=== PATIENT | male | born 1990 | race Two or more races ===

== ENCOUNTER 2024-07-01 21:27 | Emergency (ER) | payer MEDICAID, SELFPAY ==
[2024-07-01 21:28] VITALS: BMI 34.4
--- NOTE | 2024-07-01 21:30 | EKG_ITS ---
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
--- NOTE | 2024-07-01 21:32 | XR_ITS ---
Examination: PA lateral chest 2 views Technique: Upright PA lateral chest 2 views Exam date and time: July 01, 2024 1001 hrs. Indications: Chest pain today Findings: Normal heart size Lungs are clear. The osseous structures are intact Impression: No active disease
--- NOTE | 2024-07-01 21:33 | PD.EDRME ---
Rapid Medical Screening Exam RME Arrival date/time: 07/01/24 21:27 33 year old male present to ED for c/o of chest pain. I have greeted and performed a focused initial assessment of this patient. A comprehensive ED assessment and evaluation of the patient, analysis of all test results, and completion of the medical decision making process will be conducted by additional ED providers. Chief Complaint: Anxiety Time Seen by Provider: 07/01/24 21:32
[2024-07-01 21:39] VITALS: BP 152/84; PULSE 100; RESP 20; TEMP 36.7; O2SAT 100
[2024-07-01 22:00] LABS: Basophils # (Auto) 0.1 Thou/mm3 (0.0-0.2); Basophils % (Auto) 1 % (0-2.5); Eosinophils # (Auto) 0.1 Thou/mm3 (0.0-0.5); Eosinophils % (Auto) 1 % (0-10); Hematocrit 40.3 % (41.0-53.0); Hemoglobin 13.8 g/dL (13.5-16.0); Immature Granulocytes % (Auto) 0 % (0-0); Immature Granulocytes Auto 0.02 Thou/mm3 (0.00-0.00); Lymphocytes # (Auto) 2.3 Thou/mm3 (1.0-4.8); Lymphocytes % (Auto) 26 % (10-50); Mean Corpuscular HGB Conc 34.2 g/dl (31.0-37.0); Mean Corpuscular Hemoglobin 29.6 pg (25.0-35.0); Mean Corpuscular Volume 87 fL (80-100); Monocytes # (Auto) 0.4 Thou/mm3 (0.0-0.8); Monocytes % (Auto) 4 % (0-12); Neutrophils # (Auto) 6.2 Thou/mm3 (1.8-7.7); Neutrophils % (Auto) 69 % (37-80); Nucleated Red Blood Cell % 0 /100 WBC (0); Platelet Count 216 Thou/mm3 (140-440); RDW Standard Deviation 40.2 fL (35.1-43.9); Red Blood Count 4.66 Miln/mm3 (4.50-5.90)
[2024-07-01 22:19] LABS: Alanine Aminotransferase 26 U/L (10-49); Albumin, Serum 4.7 gm/dL (3.5-5.0); Albumin/Globulin Ratio 1.6 (1.2-2.2); Alkaline Phosphatase 120 U/L (46-116); Anion Gap 10 (7-16); Aspartate Amino Transferase 21 U/L (0-34); BUN/Creatinine Ratio 13 Ratio (12-20); Bilirubin,Total 0.7 mg/dL (0.3-1.2); Blood Urea Nitrogen 12 mg/dL (9-23); Calcium 9.7 mg/dL (8.3-10.6); Calcium (Corrected) 9.7 mg/dL (8.5-10.1); Carbon Dioxide 20.6 mMol/L (20.0-31.0); Chloride 108 mMol/L (98-107); Creatinine (Component) 0.9 mg/dL (0.6-1.3); Estimated Creatinine Clearance 142.9 mL/min (>60); Glucose 121 mg/dL (74-106); Lipase 38 U/L (12-53); Magnesium 1.8 mg/dL (1.6-2.6); Osmolality,Calculated 278 (275-295); Potassium 3.3 mMol/L (3.4-5.1); Sodium 139 mMol/L (136-145); Total Protein 7.7 gm/dL (5.7-8.2); Troponin I < 0.002 ng/mL (0.0-0.045); eGFR > 60 See Note
[2024-07-01 23:57] LABS: Amphetamine/Methamp Scrn,U Negative (Negative); Barbiturate Screen,Urine Negative (Negative); Benzodiazepines Screen,Urine Negative (Negative); Benzoylecgonine Screen, Ur Positive (Negative); Fentanyl Screen,Urine Negative (Negative); Opiate Screen,Urine Negative (Negative); THC Screen,Urine Negative (Negative)
--- NOTE | 2024-07-02 01:08 | PD.EDANX ---
ED Anxiety RME/HPI General Chief Complaint: Anxiety Stated Complaint: BILHAND NUMBNESS AFTER USING COCAIN Time Seen by Provider: 07/01/24 21:32 Arrival date/time: 07/01/24 21:27 33 year old male present to emergency room with c/o of chest pain/hand numbness after cocaine use tonight. LOCATION: chest, hands SEVERITY: Symptoms are described as being severe with limitations on activities of daily living CONTEXT: The patient is unable to identify any inciting events. DURATION/TIMING: The symptoms started approximately 1 day ASSOCIATED SYMPTOMS: The patient is unable to identify any other associated symptoms. MODIFYING FACTORS: The patient is unable to identify any alleviating or aggravating symptoms. PERTINENT ROS: no fevers, no cough, no pleuritic pain, no ripping or tearing sensations, denies any lower extremity edema and no unilateral swelling, no nausea,vomiting, diarrhea, no dizziness/headache no rash no loc/syncope episode no abd/back pain no dsyuria,urgency,frequency REVIEW OF SYSTEMS: See History of Present Illness - with the exception of those mentioned in the history of present illness, all other systems reviewed and reported as negative GENERAL: In general the patient is awake, interactive, in an emergency department gurney. HEAD/EYES/EARS/NOSE/THROAT: normo-cephalic, atraumatic, mucus membranes are moist, anicteric, palpebral conjunctiva is pink, trachea is midline. CARDIOVASCULAR: regular rate and regular rhythm, no murmurs, heart sounds are not distant, strong pulses in all four extremities that are equal and symmetric bilateral upper and lower extremities, normal capillary refill. CHEST/PULMONARY: normal chest rise and fall, good air movement, clear to auscultation bilaterally, normal inspiratory to expiratory ratios without evidence of respiratory distress. NECK: No midline/Paraspinal tenderness, no step off ROM/Strenght intact No Kernig and bruzinski sign. No trauma ABDOMEN: soft, not tender, no masses appreciated BACK: normal range of motion without pain. NEUROLOGICAL: cranio-facial features are symmetric, moves all four extremities equally without obvious limitations or weakness. EXTREMITY: no tenderness to palpation over the long bones or large joints of the bilateral upper and lower extremities, no joint swelling, no joint erythema, no signs of trauma, no unilateral leg swelling and no peripheral edema. SKIN: warm, dry, well-perfused, no jaundice, no rash, no telangiectasias or petechia. PSYCH: calm, cooperative, no evidence of psychosis or agitation RME / HPI RME / HPI narrative: 07/01/24 21:27 33 year old male present to ED for c/o of chest pain. I have greeted and performed a focused initial assessment of this patient. A comprehensive ED assessment and evaluation of the patient, analysis of all test results, and completion of the medical decision making process will be conducted by additional ED providers. Related Data Previous Rx's ?Medication ?Instructions ?Recorded ibuprofen 800 mg tablet 800 mg PO TID PRN pain #30 tabs 03/23/24 Allergies Allergy/AdvReac Type Severity Reaction Status Date / Time No Known Allergies Allergy Unknown Unverified 07/01/24 21:30 Course Quality Measures none Orders Category Date Time Status EKG (ED ONLY) *Do not use* NOW Care 07/01/24 21:31 Completed EKG (ED Only) Stat Exams 07/01/24 21:30 Draft XR chest 2V Stat Exams 07/01/24 21:32 Completed CBC Stat Lab 07/01/24 21:50 Completed CMP [Comprehensive Metabolic Panel] Stat Lab 07/01/24 21:50 Completed Drug Screen,Urine Stat Lab 07/01/24 23:10 Completed Lipase Stat Lab 07/01/24 21:50 Completed Mag [Magnesium] Stat Lab 07/01/24 21:50 Completed Troponin I Stat Lab 07/01/24 21:50 Completed Reevaluation(s) Reevaluation #1: pt is feeling better and comfortable to go home. discussed in lenght about avoid cocaine/illicit drugs which can be harmful to your health Vital Signs Vital signs: Vital Signs Temperature 98.0 F 07/01/24 21:39 Pulse Rate 100 07/01/24 21:39 Respiratory Rate 20 07/01/24 21:39 Blood Pressure 152/84 H 07/01/24 21:39 Pulse Oximetry (%) 100 07/01/24 21:39 Oxygen Delivery Method Room Air 07/01/24 21:39 Procedures -ED EKG Interpretation #1: Date of EK07/02/24 Rate: 96 Interpretation: Reviewed by me EKG Impression: Normal sinus rhythm, No acute ST-T changes and No ischemic changes Anxiety Patient data External records reviewed:: [facility] previous records Clinical information provided by:: patient Social determinants that could affect healthcare access:: substance use Patient has the following chronic illnesses:: none How is presenting disease/condition affected by chronic disease/condition?: no chronic disease Evaluation data The following diagnostics were reviewed and interpreted by me:: lab results, radiology exam(s) and EKG tracing(s) Lab and/or radiology exams considered but not ordered:: none Interpretation Summary: Findings: Normal heart size Lungs are clear. The osseous structures are intact Impression: No active disease cbc/cmp/trop/mg within normal limits drug: + cocaine Medications / Prescriptions Medications or Prescriptions considered but not ordered:: none Medication administrations:: none Consultations Consultation(s) initiated? (list below): No Diagnosis Differential diagnosis anxiety: hyperventilation, panic disorder, acute anxiety and other (mi/stemi, pna, drug abuse) Most likely diagnosis given after review of the tests above:: chest pain Admission Indicated Admission indicated?: not indicated Admission Request Was there a request for admission?: No Disposition Plan Disposition Plan: Discharge Discharge Attestation Discharge Attestation: The patient and all family members were given an opportunity to ask questions and understood the discharge instructions. Discharge instructions specifically effects, indications for sooner follow up or return to the emergency department, and the expected course of current diagnosis. Patient condition: Stable Discharge Plan Plan Patient Disposition: HOME (Self Care) Health Concerns: Follow with PMD as directed Return to ED if sx worsen Prescriptions/Referrals Prescriptions/Med Rec: No Action ibuprofen 800 mg tablet 800 mg PO TID PRN (Reason: pain) Qty: 30 0RF Referrals: Eran Aguayo MD [Primary Care Provider] - In 1 week Problem List Clinical Impression: Chest pain Patient/Caregiver Discharge Instructions Education Materials: ED Chest Pain, Uncertain Cause Print Language: Thai Stand Alone Forms: Stacy Award Info., Patient Portal Info Letter MD Attestation Attestation The patient was seen by the midlevel practitioner. I, the co-signing physician, was present during the entire ER visit. While I did not physically examine the patient, I was available for consultation as needed.
== END 2024-07-02 01:15 | disposition home or self-care (01) ==
PROVIDERS: Physician Assistant; Emergency Provider Emergency Medicine; PCP Family Medicine
DX: R07.9 Chest pain, unspecified (principal); R94.31 Abnormal electrocardiogram [ECG] [EKG]; R20.0 Anesthesia of skin; F14.90 Cocaine use, unspecified, uncomplicated
CPT/HCPCS: 36415; 71046; 80053; 80307; 83690; 83735; 84484; 85025; 93005; 99283

== ENCOUNTER 2024-08-03 20:58 | Emergency (ER) | payer MEDICAID, SELFPAY ==
[2024-08-03 20:59] VITALS: BMI 34.4
--- NOTE | 2024-08-03 21:17 | EKG_ITS ---
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
[2024-08-03 21:42] VITALS: BP 139/93; PULSE 76; RESP 18; TEMP 36.8; O2SAT 96
--- NOTE | 2024-08-03 21:52 | XR_ITS ---
Examination: PA lateral chest 2 views Technique: Upright PA lateral chest 2 views Exam date and time: August 03, 2024 10:16 PM Comparison July 01, 2024 Indications: Onset chest pain beginning 2 days ago. Findings: Normal heart size Lungs are clear. The osseous structures are intact Impression: No active disease
--- NOTE | 2024-08-03 21:53 | PD.EDRME ---
Rapid Medical Screening Exam RME Arrival date/time: 08/03/24 20:58 33-year-old male presents emergency department complaining of generalized weakness and left-sided chest pain that radiates to left arm that started earlier today. Chief Complaint: Anxiety Vital signs: Vital Signs Temperature 98.2 F 08/03/24 21:42 Pulse Rate 76 08/03/24 21:42 Respiratory Rate 18 08/03/24 21:42 Blood Pressure 139/93 H 08/03/24 21:42 Pulse Oximetry (%) 96 08/03/24 21:42 Oxygen Delivery Method Room Air 08/03/24 21:42 Vital signs reviewed by provider: Yes
[2024-08-03 23:09] LABS: Basophils # (Auto) 0.1 Thou/mm3 (0.0-0.2); Basophils % (Auto) 1 % (0-2.5); Eosinophils # (Auto) 0.1 Thou/mm3 (0.0-0.5); Eosinophils % (Auto) 1 % (0-10); Hematocrit 40.5 % (41.0-53.0); Hemoglobin 13.4 g/dL (13.5-16.0); Immature Granulocytes % (Auto) 0 % (0-0); Immature Granulocytes Auto 0.02 Thou/mm3 (0.00-0.00); Lymphocytes # (Auto) 2.4 Thou/mm3 (1.0-4.8); Lymphocytes % (Auto) 27 % (10-50); Mean Corpuscular HGB Conc 33.1 g/dl (31.0-37.0); Mean Corpuscular Hemoglobin 29.4 pg (25.0-35.0); Mean Corpuscular Volume 89 fL (80-100); Monocytes # (Auto) 0.7 Thou/mm3 (0.0-0.8); Monocytes % (Auto) 8 % (0-12); Neutrophils # (Auto) 5.5 Thou/mm3 (1.8-7.7); Neutrophils % (Auto) 62 % (37-80); Nucleated Red Blood Cell % 0 /100 WBC (0); Platelet Count 265 Thou/mm3 (140-440); Red Blood Count 4.56 Miln/mm3 (4.50-5.90); White Blood Count 8.9 Thou/mm3 (3.8-10.6)
[2024-08-03 23:17] LABS: Collection Type, Urine Clean Catch; Squamous Epithelial Cell,Urine 0 /hpf (0-5)
[2024-08-03 23:18] LABS: Partial Thromboplastin Time 26.6 Seconds (22.0-36.0); Prothrombin Time 10.5 Seconds (9.0-12.2)
[2024-08-03 23:20] LABS: B-Type Natriuretic Peptide < 20 pg/mL (0-100)
[2024-08-03 23:21] LABS: Alanine Aminotransferase 31 U/L (10-49); Albumin, Serum 4.4 gm/dL (3.5-5.0); Albumin/Globulin Ratio 1.5 (1.2-2.2); Alkaline Phosphatase 102 U/L (46-116); Anion Gap 8 (7-16); Aspartate Amino Transferase 23 U/L (0-34); BUN/Creatinine Ratio 17 Ratio (12-20); Bilirubin,Total 0.4 mg/dL (0.3-1.2); Blood Urea Nitrogen 17 mg/dL (9-23); Calcium 9.8 mg/dL (8.3-10.6); Calcium (Corrected) 9.8 mg/dL (8.5-10.1); Carbon Dioxide 27.2 mMol/L (20.0-31.0); Chloride 107 mMol/L (98-107); Estimated Creatinine Clearance 128.6 mL/min (>60); Glucose 93 mg/dL (74-106); Magnesium 2.1 mg/dL (1.6-2.6); Osmolality,Calculated 284 (275-295); Potassium 3.9 mMol/L (3.4-5.1); Sodium 142 mMol/L (136-145); Total Protein 7.4 gm/dL (5.7-8.2); Troponin I < 0.002 ng/mL (0.0-0.045); eGFR > 60 See Note
[2024-08-03 23:39] LABS: Amorphous Crystals,Urine Present (Absent); Bilirubin,Urine Negative (Negative); Blood,Urine Negative (Negative); Clarity,Urine Turbid (Clear/Hazy); Color,Urine Lt-Yellow (Lt Yel-Yel); Glucose, Urine Negative (Negative); Ketones,Urine Negative (Negative); Leukocyte Esterase,Urine Negative (Negative); Nitrite,Urine Negative (Negative); Protein,Urine Negative (Neg - Trace); RBC,Urine 3 /hpf (0-3); Specific Gravity,Urine 1.022 (1.001-1.035); Urobilinogen,Urine Negative mg/dL (0.0-1.0); WBC,Urine 6 /hpf (0-5)
[2024-08-04 00:30] LABS: Amphetamine/Methamp Scrn,U Negative (Negative); Barbiturate Screen,Urine Negative (Negative); Benzodiazepines Screen,Urine Negative (Negative); Benzoylecgonine Screen, Ur Negative (Negative); Fentanyl Screen,Urine Negative (Negative); Opiate Screen,Urine Negative (Negative); THC Screen,Urine Negative (Negative)
--- NOTE | 2024-08-04 00:43 | EDNOTE_ITS ---
<Statement entered by Pamela Romero MD - 08/04/24 19:43> As co-signing physician, I was present and available for consult prn. I concur with the plan and care as documented by the midlevel provider. ED Anxiety RME/HPI General Chief Complaint: Anxiety Stated Complaint: ANXIETY /CHEST PRESSURE X 2DAYS Time Seen by Provider: 08/03/24 23:34 Source: patient Arrival date/time: 08/03/24 20:58 33-year-old male presents emergency department complaining of generalized weakness and left-sided chest pain that radiates to left arm that started earlier today. Patient denies any fever, chills, cough, sore throat, body aches, nausea vomiting, or any other associated symptom. Mode of arrival: ambulatory Limitations: no limitations RME / HPI RME / HPI narrative: 08/03/24 20:58 33-year-old male presents emergency department complaining of generalized weakness and left-sided chest pain that radiates to left arm that started earlier today. Related Data Previous Rx's ?Medication ?Instructions ?Recorded ibuprofen 800 mg tablet 800 mg PO TID PRN pain #30 tabs 03/23/24 Allergies Allergy/AdvReac Type Severity Reaction Status Date / Time No Known Allergies Allergy Unknown Unverified 07/01/24 21:30 Review of Systems Review of Systems Systems Reviewed: All systems reviewed, normal except as documented Constitutional Constitutional: Reports system reviewed and no additional complaints, except as documented, Denies body ache(s), Denies chills, Denies fever(s) and Reports weakness Eyes Eyes: Reports system reviewed and no additional complaints, except as documented and Denies change in vision ENT Ears, Nose, Mouth, and Throat: Reports system reviewed and no additional complaints, except as documented, Denies disequilibrium, Denies dizziness, Denies sore throat and Denies vertigo Cardiovascular Cardiovascular: Reports system reviewed and no additional complaints, except as documented, Reports chest pain and Denies dyspnea Respiratory Respiratory: Reports system reviewed and no additional complaints, except as documented, Denies chest congestion, Denies cough and Denies dyspnea Gastrointestinal Gastrointestinal: Reports system reviewed and no additional complaints, except as documented, Denies abdominal pain, Denies nausea and Denies vomiting Musculoskeletal Musculoskeletal: Reports system reviewed and no additional complaints, except as documented, Denies abnormal gait and Denies arthralgias Integumentary/Breasts Skin/Breast: Reports system reviewed and no additional complaints, except as documented, Denies erythema, Denies rash and Denies wounds Neurologic Neurologic: Reports system reviewed and no additional complaints, except as documented, Denies abnormal gait, Denies disequilibrium, Denies dizziness, Denies vertigo and Reports weakness Past Medical History Past Medical History NEUROLOGIC: Negative Neurological Disorders CARDIAC: Negative Cardiac Disorders or Congestive Heart Failure RESPIRATORY: Negative Chronic Obstructive Pulmonary Disease (COPD) or Asthma GENITOURINARY: Negative Renal Disease ENDOCRINE: Negative Diabetes Mellitus Type 1 or Diabetes Mellitus Type 2 HEMATOLOGIC: Negative Sickle Cell Disease Social History SMOKING STATUS: Never smoker SUBSTANCE USE: marijuana ED Exam General Limitations: Present no limitations General appearance: Present alert and in no apparent distress Head Head exam: Present atraumatic Eye Eye exam: Present normal appearance, PERRL and EOMI ENT ENT exam: Present normal exam, normal oropharynx and mucous membranes moist Neck Neck exam: Present normal inspection, full ROM and trachea midline Chest Chest inspection: Present normal inspection and symmetric chest wall rise Respiratory Respiratory exam: Present normal lung sounds bilaterally Cardiovascular Cardiovascular exam: Present regular rate, normal rhythm and normal heart sounds Abdominal Exam Abdominal exam: Present soft and normal bowel sounds Extremities Exam Extremities exam: Present normal inspection and full ROM Back Exam Back exam: Present normal inspection and full ROM Neurological Exam Neurological exam: Present alert, oriented X3 and CN II-XII intact Psychiatric Psychiatric exam: Present normal affect and normal mood Skin Skin exam: Present warm, dry, intact and normal color Course Quality Measures none Orders Category Date Time Status Bedside COVID-19 Antigen Test NOW Care 08/03/24 21:53 Completed Bedside Influenza A&B Antigen Test NOW Care 08/03/24 21:53 Completed EKG (ED ONLY) *Do not use* NOW Care 08/03/24 21:17 Completed EKG (ED Only) Stat Exams 08/03/24 21:17 Draft XR chest 2V Stat Exams 08/03/24 21:52 Completed B-Type Natriuretic Peptide Stat Lab 08/03/24 22:36 Completed CBC Stat Lab 08/03/24 22:36 Completed Comprehensive Metabolic Panel Stat Lab 08/03/24 22:36 Completed Drug Screen,Urine Stat Lab 08/03/24 22:59 Completed Magnesium Stat Lab 08/03/24 22:36 Completed Partial Thromboplastin Time Stat Lab 08/03/24 22:36 Completed Prothrombin Time with INR Stat Lab 08/03/24 22:36 Completed Troponin I Stat Lab 08/03/24 22:36 Completed Urinalysis Stat Lab 08/03/24 22:59 Completed Vital Signs Vital signs: Vital Signs Temperature 98.2 F 08/03/24 21:42 Pulse Rate 76 08/03/24 21:42 Respiratory Rate 18 08/03/24 21:42 Blood Pressure 139/93 H 08/03/24 21:42 Pulse Oximetry (%) 96 08/03/24 21:42 Oxygen Delivery Method Room Air 08/03/24 21:42 96% room air within normal limits Procedures -ED EKG Interpretation #1: Date of EK08/03/24 Time of EK:45 Rate: 68 Interpretation: Interpreted by me EKG Impression: Normal sinus rhythm, No acute ST-T changes, No ectopy, No ischemic changes and Normal QRS Anxiety MDM Narrative MDM Narrative: 33-year-old male presents emergency department complaining of generalized weakness and left-sided chest pain that radiates to left arm that started earlier today. Patient denies any fever, chills, cough, sore throat, body aches, nausea vomiting, or any other associated symptom. CBC was unremarkable for any leukocytosis. CMP was unremarkable for any elevated LFTs or gross electrolyte abnormalities. EKG sinus rhythm with normal troponin. Urinalysis was unremarkable. Chest x-ray was unremarkable for any pneumonic infiltrates. No adventitious lung sounds on auscultation. Patient appears nontoxic and is hemodynamically stable. Heart score 1 risk of MACE 0.9-1.7%. Patient discharge directed to follow-up with primary care provider return immediately to the emergency department for any worsening symptoms or as needed. Patient data External records reviewed:: [facility] previous records Clinical information provided by:: patient Social determinants that could affect healthcare access:: none Patient has the following chronic illnesses:: N/A How is presenting disease/condition affected by chronic disease/condition?: no chronic disease Evaluation data The following diagnostics were reviewed and interpreted by me:: lab results, radiology exam(s) and EKG tracing(s) Lab and/or radiology exams considered but not ordered:: Ordered Interpretation Summary: Interpreted by me Medications / Prescriptions Medications or Prescriptions considered but not ordered:: N/A Medication administrations:: N/A Consultations Consultation(s) initiated? (list below): No Diagnosis Differential diagnosis anxiety: hyperventilation, panic disorder and acute anxiety Most likely diagnosis given after review of the tests above:: Noncardiac chest pain Anxiety Admission Indicated Admission indicated?: not indicated Admission Request Was there a request for admission?: No Disposition Plan Disposition Plan: Discharge Discharge Attestation Discharge Attestation: The patient and all family members were given an opportunity to ask questions and understood the discharge instructions. Discharge instructions specifically effects, indications for sooner follow up or return to the emergency department, and the expected course of current diagnosis. Patient condition: Stable Discharge Plan Plan Patient Disposition: HOME (Self Care) Disposition Comment: Stable Prescriptions/Referrals Prescriptions/Med Rec: No Action ibuprofen 800 mg tablet 800 mg PO TID PRN (Reason: pain) Qty: 30 0RF Referrals: Eran Aguayo MD [Primary Care Provider] - In 1 week Problem List Clinical Impression: Chest pain, non-cardiac, Anxiety Patient/Caregiver Discharge Instructions Discharge Activity: activity as tolerated Education Materials: ED Anxiety Reaction, ED Chest Pain, Noncardiac Additional Instructions: Follow-up with primary care provider in 2 to 3 days. Return to the emergency department for any worsening symptoms or as needed. Print Language: [place] Citizen Stand Alone Forms: Stacy Award Info., Patient Portal Info Letter JOB/PEPITO Supervising Physician JOB/PEPITO Supervising Physician: Dr. Romero
[2024-08-04 00:59] VITALS: BP 126/76; PULSE 72; RESP 18; TEMP 36.7; O2SAT 99
== END 2024-08-04 01:01 | disposition home or self-care (01) ==
PROVIDERS: Emergency Provider Emergency Medicine; PCP Family Medicine
DX: F41.9 Anxiety disorder, unspecified (principal); R07.89 Other chest pain; I45.10 Unspecified right bundle-branch block
CPT/HCPCS: 36415; 71046; 80053; 80307; 81001; 83735; 83880; 84484; 85025; 85610; 85730; 87400; 87811; 93005; 99283

== ENCOUNTER 2024-08-19 00:01 | Emergency (ER) | payer MEDICAID, SELFPAY ==
[2024-08-19 00:02] VITALS: BMI 34.4
--- NOTE | 2024-08-19 00:05 | EKG_ITS ---
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
[2024-08-19 00:30] VITALS: BP 136/88; PULSE 81; RESP 18; TEMP 37; O2SAT 98
[2024-08-19] MEDS: DIAZEPAM 5 MG TABLET 10 MG PO (00:53)
--- NOTE | 2024-08-19 05:41 | PD.EDANX ---
ED Anxiety RME/HPI General Chief Complaint: Chest Pain Stated Complaint: CHEST PAIN Time Seen by Provider: 08/19/24 00:41 Arrival date/time: 08/19/24 00:01 33M with no significant PMH presents to ED with CP, SOB, and full-body numbness. Patient has been here multiples times for this with normal cardiac work-ups. Patient admits he has anxiety, but PCP keeps brushing him off. Limitations: no limitations Related Data Previous Rx's ?Medication ?Instructions ?Recorded ibuprofen 800 mg tablet 800 mg PO TID PRN pain #30 tabs 03/23/24 Allergies Allergy/AdvReac Type Severity Reaction Status Date / Time No Known Allergies Allergy Unknown Unverified 07/01/24 21:30 Review of Systems Review of Systems Systems Reviewed: All systems reviewed, normal except as documented Constitutional Constitutional: Reports system reviewed and no additional complaints, except as documented, Denies fever(s) and Denies headache(s) ENT Ears, Nose, Mouth, and Throat: Denies disequilibrium and Denies headache(s) Cardiovascular Cardiovascular: Reports system reviewed and no additional complaints, except as documented, Denies chest pain and Reports dyspnea Respiratory Respiratory: Reports system reviewed and no additional complaints, except as documented, Reports as per HPI, Reports cough and Reports dyspnea Gastrointestinal Gastrointestinal: Reports system reviewed and no additional complaints, except as documented, Denies abdominal pain, Denies nausea and Denies vomiting Musculoskeletal Musculoskeletal: Reports numbness Neurologic Neurologic: Reports system reviewed and no additional complaints, except as documented, Reports as per HPI, Denies confusion, Denies disequilibrium, Denies headache(s) and Reports numbness Psychiatric Psychiatric: Denies confusion Past Medical History Past Medical History NEUROLOGIC: Negative Neurological Disorders CARDIAC: Negative Cardiac Disorders or Congestive Heart Failure RESPIRATORY: Negative Chronic Obstructive Pulmonary Disease (COPD) or Asthma GENITOURINARY: Negative Renal Disease ENDOCRINE: Negative Diabetes Mellitus Type 1 or Diabetes Mellitus Type 2 HEMATOLOGIC: Negative Sickle Cell Disease Social History SMOKING STATUS: Never smoker SUBSTANCE USE: marijuana ED Exam General Limitations: Present no limitations General appearance: Present alert and in no apparent distress Head Head exam: Present atraumatic Eye Eye exam: Present normal appearance, PERRL and EOMI ENT ENT exam: Present normal exam, normal oropharynx and mucous membranes moist Neck Neck exam: Present normal inspection, full ROM and trachea midline Chest Chest inspection: Present normal inspection and symmetric chest wall rise Respiratory Respiratory exam: Present normal lung sounds bilaterally Cardiovascular Cardiovascular exam: Present regular rate, normal rhythm and normal heart sounds Abdominal Exam Abdominal exam: Present soft and normal bowel sounds Extremities Exam Extremities exam: Present normal inspection and full ROM Back Exam Back exam: Present normal inspection and full ROM Neurological Exam Neurological exam: Present alert, oriented X3 and CN II-XII intact Psychiatric Psychiatric exam: Present normal affect and anxious Skin Skin exam: Present warm, dry, intact and normal color Course Quality Measures none Orders Category Date Time Status EKG (ED ONLY) *Do not use* NOW Care 08/19/24 00:05 Completed EKG (ED Only) Stat Exams 08/19/24 00:05 Draft Diazepam [Valium] Med 08/19/24 00:46 Discontinued 10 mg PO X1 ONE Vital Signs Vital signs: Vital Signs Temperature 98.6 F 08/19/24 00:30 Pulse Rate 81 08/19/24 00:30 Respiratory Rate 18 08/19/24 00:30 Blood Pressure 136/88 H 08/19/24 00:30 Pulse Oximetry (%) 98 08/19/24 00:30 Oxygen Delivery Method Room Air 08/19/24 00:30 Anxiety MDM Narrative MDM Narrative: 33M with no significant PMH presents to ED with CP, SOB, and full-body numbness. Patient has been here multiples times for this with normal cardiac work-ups. Patient admits he has anxiety, but PCP keeps brushing him off. Physical exam reveals clear ENT and lungs. Patient is afebrile, alert, but anxious. EKG is NSR. Likely anxiety. Extensive counseling done. Patient data External records reviewed:: [facility] previous records Clinical information provided by:: patient Social determinants that could affect healthcare access:: none Patient has the following chronic illnesses:: none How is presenting disease/condition affected by chronic disease/condition?: no chronic disease Evaluation data The following diagnostics were reviewed and interpreted by me:: EKG tracing(s) Lab and/or radiology exams considered but not ordered:: ordered Interpretation Summary: above Medications / Prescriptions Medications or Prescriptions considered but not ordered:: ordered Medication administrations:: Medication Administration History Discontinued Medications Diazepam (Diazepam 5 Mg Tablet) 10 mg PO X1 ONE Stop: 08/19/24 00:47 Last Admin: 08/19/24 00:53 Dose: 10 mg Documented By: CVL Consultations Consultation(s) initiated? (list below): No Diagnosis Differential diagnosis anxiety: hyperventilation, panic disorder and acute anxiety Most likely diagnosis given after review of the tests above:: anxiety Admission Indicated Admission indicated?: not indicated Admission Request Was there a request for admission?: No Disposition Plan Disposition Plan: Discharge Discharge Attestation Discharge Attestation: The patient and all family members were given an opportunity to ask questions and understood the discharge instructions. Discharge instructions specifically effects, indications for sooner follow up or return to the emergency department, and the expected course of current diagnosis. Patient condition: Stable Discharge Plan Plan Patient Disposition: HOME (Self Care) Disposition Comment: Stable Prescriptions/Referrals Prescriptions/Med Rec: No Action ibuprofen 800 mg tablet 800 mg PO TID PRN (Reason: pain) Qty: 30 0RF Problem List Clinical Impression: Anxiety Patient/Caregiver Discharge Instructions Education Materials: Your Body's Response to Anxiety, Understanding Anxiety Disorders, Treating Anxiety Disorders ... Additional Instructions: Please follow-up with PCP within 24-48 hours and return immediately if symptoms worsen. Recommend seeing PCP for SSRI/SNRI and/or referral to psych and/or counseling. Print Language: Tristanian Stand Alone Forms: Patient Portal Info Letter JOB/PEPITO Supervising Physician JOB/PEPITO Supervising Physician: Dr. Bermudez
== END 2024-08-19 00:59 | disposition home or self-care (01) ==
LOC: SERX 00:55
PROVIDERS: Emergency Provider Emergency Medicine; PCP Family Medicine
DX: F41.9 Anxiety disorder, unspecified (principal); R94.31 Abnormal electrocardiogram [ECG] [EKG]
CPT/HCPCS: 93005; 99283; A9270

== ENCOUNTER 2024-09-13 20:16 | Emergency (ER) | payer MEDICAID, SELFPAY ==
[2024-09-13 20:17] VITALS: BMI 34.4
[2024-09-13 21:02] VITALS: BP 130/84; PULSE 88; RESP 18; TEMP 36.9; O2SAT 99
--- NOTE | 2024-09-13 21:05 | EKG_ITS ---
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
--- NOTE | 2024-09-13 21:05 | PD.EDRME ---
Rapid Medical Screening Exam RME Arrival date/time: 09/13/24 20:16 34 yo m with c/o RLQ/Chest pain today I have greeted and performed a focused initial assessment of this patient. A comprehensive ED assessment and evaluation of the patient, analysis of all test results, and completion of the medical decision making process will be conducted by additional ED providers. Chief Complaint: General Adult/Misc Complain Time Seen by Provider: 09/13/24 20:23 Vital signs: Vital Signs Temperature 98.5 F 09/13/24 21:02 Pulse Rate 88 09/13/24 21:02 Respiratory Rate 18 09/13/24 21:02 Blood Pressure 130/84 09/13/24 21:02 Pulse Oximetry (%) 99 09/13/24 21:02 Oxygen Delivery Method Room Air 09/13/24 21:02
[2024-09-13 21:45] LABS: Collection Type, Urine Voided; Squamous Epithelial Cell,Urine 0 /hpf (0-5)
[2024-09-13 21:57] LABS: Basophils # (Auto) 0.1 Thou/mm3 (0.0-0.2); Basophils % (Auto) 1 % (0-2.5); Eosinophils # (Auto) 0.1 Thou/mm3 (0.0-0.5); Eosinophils % (Auto) 1 % (0-10); Hematocrit 43.7 % (41.0-53.0); Hemoglobin 14.9 g/dL (13.5-16.0); Immature Granulocytes % (Auto) 0 % (0-0); Immature Granulocytes Auto 0.01 Thou/mm3 (0.00-0.00); Lymphocytes # (Auto) 2.8 Thou/mm3 (1.0-4.8); Lymphocytes % (Auto) 28 % (10-50); Mean Corpuscular HGB Conc 34.1 g/dl (31.0-37.0); Mean Corpuscular Hemoglobin 29.2 pg (25.0-35.0); Mean Corpuscular Volume 86 fL (80-100); Monocytes # (Auto) 0.7 Thou/mm3 (0.0-0.8); Monocytes % (Auto) 7 % (0-12); Neutrophils # (Auto) 6.2 Thou/mm3 (1.8-7.7); Neutrophils % (Auto) 63 % (37-80); Nucleated Red Blood Cell % 0 /100 WBC (0); Platelet Count 254 Thou/mm3 (140-440); Red Blood Count 5.11 Miln/mm3 (4.50-5.90); White Blood Count 9.8 Thou/mm3 (3.8-10.6)
[2024-09-13 22:00] LABS: Bilirubin,Urine Negative (Negative); Blood,Urine Negative (Negative); Clarity,Urine Clear (Clear/Hazy); Color,Urine Lt-Yellow (Lt Yel-Yel); Glucose, Urine Negative (Negative); Ketones,Urine 1+ (Negative); Leukocyte Esterase,Urine Negative (Negative); Nitrite,Urine Negative (Negative); Protein,Urine Negative (Neg - Trace); RBC,Urine 2 /hpf (0-3); Specific Gravity,Urine 1.028 (1.001-1.035); Urobilinogen,Urine Negative mg/dL (0.0-1.0); WBC,Urine 1 /hpf (0-5)
[2024-09-13 22:12] LABS: Alanine Aminotransferase 23 U/L (10-49); Albumin, Serum 5.3 gm/dL (3.5-5.0); Albumin/Globulin Ratio 1.6 (1.2-2.2); Alkaline Phosphatase 112 U/L (46-116); Anion Gap 9 (7-16); Aspartate Amino Transferase 20 U/L (0-34); BUN/Creatinine Ratio 14 Ratio (12-20); Bilirubin,Total 0.7 mg/dL (0.3-1.2); Blood Urea Nitrogen 14 mg/dL (9-23); Calcium 9.9 mg/dL (8.3-10.6); Calcium (Corrected) 9.9 mg/dL (8.5-10.1); Carbon Dioxide 27.5 mMol/L (20.0-31.0); Chloride 104 mMol/L (98-107); Estimated Creatinine Clearance 127.4 mL/min (>60); Globulin 3.3 gm/dL (2.3-3.5); Glucose 91 mg/dL (74-106); Lipase 44 U/L (12-53); Osmolality,Calculated 279 (275-295); Potassium 3.9 mMol/L (3.4-5.1); Sodium 140 mMol/L (136-145); Total Protein 8.6 gm/dL (5.7-8.2); Troponin I < 0.002 ng/mL (0.0-0.045); eGFR > 60 See Note
[2024-09-13 22:33] LABS: Amphetamine/Methamp Scrn,U Negative (Negative); Barbiturate Screen,Urine Negative (Negative); Benzodiazepines Screen,Urine Negative (Negative); Benzoylecgonine Screen, Ur Negative (Negative); Fentanyl Screen,Urine Negative (Negative); Opiate Screen,Urine Negative (Negative); THC Screen,Urine Negative (Negative)
--- NOTE | 2024-09-13 22:44 | XR_ITS ---
Examination: CT abdomen and pelvis without contrast. Coronal 3-D reconstructions. Sagittal 2-D reconstructions. Date and time of exam:September 13, 2024 10:56 PM Indications: Right-sided flank pain beginning one year ago, worse the last several days with difficulty urinating CTDI: vol (mGy): 10.8 DLP: (mGycm): 684 Technique: Axial images of the abdomen have been obtained, 3 mm slice thickness Intravenous contrast material has not been administered. Low dose protocols were performed. One or more of the following dose reduction techniques were used; automated exposure control, adjustment of the mA and/or KV according to patient size, use of iterative reconstruction technique. Findings: No focal liver or splenic lesions No gallstones No pancreatic or adrenal mass No renal or ureteral calculi, no hydronephrosis No pericecal inflammatory change Scattered colonic diverticulosis, no diverticulitis Normal seminal vesicles No significant prostatomegaly Urinary bladder is contracted with mild urinary bladder wall thickening up to 3 mm Small fat-containing left inguinal hernia Osseous structures are intact Impression: No renal or ureteral calculi, no hydronephrosis Mild wall thickening, cystitis pattern No significant prostatomegaly Small fat-containing left inguinal hernia
--- NOTE | 2024-09-14 00:12 | EDNOTE_ITS ---
ED General RME/HPI General Chief complaint: General Adult/Misc Complain Stated complaint: ABD PAIN,SOB,CP Time Seen by Provider: 09/13/24 20:23 Arrival date/time: 09/13/24 20:16 34 year old male present to emergency room with c/o of abdominal pain today, shortness of breath and chest pain ( ongoing). denies any trauma or injury LOCATION: RLQ, Chest pain SEVERITY: Symptoms are described as being severe with limitations on activities of daily living QUALITY: Symptoms are described as being cramping CONTEXT: The patient is unable to identify any inciting events. DURATION/TIMING: The symptoms started approximately one day ago and have been waxing/waning but always present without ever completely resolving. ASSOCIATED SYMPTOMS: The patient is unable to identify any other associated symptoms. MODIFYING FACTORS: The patient is unable to identify any alleviating or aggravating symptoms. PERTINENT ROS: no fevers, no anorexia, no nausea or vomiting, no diarrhea, no ripping or tearing sensations, no syncope or presyncopal symptoms, denies trauma, denies genital pain REVIEW OF SYSTEMS: See History of Present Illness - with the exception of those mentioned in the history of present illness, all other systems reviewed and reported as negative GENERAL: In general the patient is awake, interactive, in an emergency department gurney. HEAD/EYES/EARS/NOSE/THROAT: normo-cephalic, atraumatic, mucus membranes are moist, anicteric, palpebral conjunctiva is pink, trachea is midline. CARDIOVASCULAR: regular rate and regular rhythm, no murmurs, heart sounds are not distant, strong pulses in all four extremities that are equal and symmetric bilateral upper and lower extremities, normal capillary refill. CHEST/PULMONARY: normal chest rise and fall, good air movement, clear to auscultation bilaterally, normal inspiratory to expiratory ratios without evidence of respiratory distress. NECK: No midline/Paraspinal tenderness, no step off ROM/Strenght intact No Kernig and bruzinski sign. No trauma ABDOMEN: soft, generalized abdominal tenderness no masses appreciated BACK: normal range of motion without pain. NEUROLOGICAL: cranio-facial features are symmetric, moves all four extremities equally without obvious limitations or weakness. EXTREMITY: no tenderness to palpation over the long bones or large joints of the bilateral upper and lower extremities, no joint swelling, no joint erythema, no signs of trauma, no unilateral leg swelling and no peripheral edema. SKIN: warm, dry, well-perfused, no jaundice, no rash, no telangiectasias or petechia. PSYCH: calm, cooperative, no evidence of psychosis or agitation RME / HPI RME / HPI narrative: 09/13/24 20:16 34 yo m with c/o RLQ/Chest pain today I have greeted and performed a focused initial assessment of this patient. A comprehensive ED assessment and evaluation of the patient, analysis of all test results, and completion of the medical decision making process will be conducted by additional ED providers. Related Data Previous Rx's ?Medication ?Instructions ?Recorded ibuprofen 800 mg tablet 800 mg PO TID PRN pain #30 tabs 03/23/24 Allergies Allergy/AdvReac Type Severity Reaction Status Date / Time No Known Allergies Allergy Unknown Verified 09/13/24 20:19 Course Course Course Narrative: Patient?s symptoms not typical for emergent causes of abdominal pain such as, but not limited to, appendicitis, abdominal aortic aneurysm, surgical biliary disease, pancreatitis, SBO, mesenteric ischemia, serious intra-abdominal bacterial illness, genital torsion. Doubt atypical ACS. Pt tolerating PO. Disposition: Patient will be discharged with strict return precautions and follow up with primary MD within 12-24 hours for further evaluation. Patient understands that this still may have an early presentation of an emergent medical condition such as appendicitis that will require a recheck. Quality Measures none Orders Category Date Time Status EKG (ED ONLY) *Do not use* NOW Care 09/13/24 21:[address] abdomen pelvis wo con Stat Exams 09/13/24 22:44 Completed EKG (ED Only) Stat Exams 09/13/24 21:05 Draft CBC Stat Lab 09/13/24 21:24 Completed CMP [Comprehensive Metabolic Panel] Stat Lab 09/13/24 21:24 Completed Drug Screen,Urine Stat Lab 09/13/24 22:09 Completed Lipase Stat Lab 09/13/24 21:24 Completed Troponin I Stat Lab 09/13/24 21:24 Completed UA [Urinalysis] Stat Lab 09/13/24 21:30 Completed Urine Culture Stat Lab 09/13/24 21:30 Received Vital Signs Vital signs: Vital Signs Temperature 98.5 F 09/13/24 21:02 Pulse Rate 88 09/13/24 21:02 Respiratory Rate 18 09/13/24 21:02 Blood Pressure 130/84 09/13/24 21:02 Pulse Oximetry (%) 99 09/13/24 21:02 Oxygen Delivery Method Room Air 09/13/24 21:02 Procedures -ED EKG Interpretation #1: Date of EK09/14/24 Rate: 81 Interpretation: Reviewed by me EKG Impression: Normal sinus rhythm, No acute ST-T changes, No ectopy, No ischemic changes and Normal QRS MDM Patient data External records reviewed:: None Clinical information provided by:: patient Social determinants that could affect healthcare access:: none Patient has the following chronic illnesses:: no acute findings How is presenting disease/condition affected by chronic disease/condition?: no chronic disease Evaluation data The following diagnostics were reviewed and interpreted by me:: lab results, radiology exam(s) and EKG tracing(s) Lab and/or radiology exams considered but not ordered:: none Interpretation Summary: ctImpression: No renal or ureteral calculi, no hydronephrosis Mild wall thickening, cystitis pattern No significant prostatomegaly Small fat-containing left inguinal hernia cbc/cmp/trop urine no acute findings Medications Medications considered but not ordered:: none Medication administrations:: none Consultations Consultation(s) initiated? (list below): No Diagnosis Differential Diagnosis ED Complaint MDM: appendicitis. uti, mi/nstemin kidney stone/infection, anemia, sbo Most likely diagnosis given after review of the tests above:: abd pain Admission Indicated Admission indicated?: not indicated Explain why admission is indicated or not indicated:: none Admission Request Was there a request for admission?: No Disposition Plan Disposition Plan: Discharge Discharge Attestation Discharge Attestation: The patient and all family members were given an opportunity to ask questions and understood the discharge instructions. Discharge instructions specifically effects, indications for sooner follow up or return to the emergency department, and the expected course of current diagnosis. Patient condition: Stable Medical Decision Making Differential Diagnosis Differential Diagnosis: appendicitis. uti, mi/nstemin kidney stone/infection, anemia, sbo Lab Data 09/13/24 21:24 09/13/24 21:24 Labs: Lab Results 09/13/24 09/13/24 09/13/24 Range/Units 21:24 21:30 22:09 WBC 9.8 (3.8-10.6) Thou/mm3 RBC 5.11 (4.50-5.90) Miln/mm3 Hgb 14.9 (13.5-16.0) g/dL Hct 43.7 (41.0-53.0) % MCV 86 (80-100) fL MCH 29.2 (25.0-35.0) pg MCHC 34.1 (31.0-37.0) g/dl RDW Std Deviation 41.0 (35.1-43.9) fL Plt Count 254 (140-440) Thou/mm3 Neut % (Auto) 63 (37-80) % Lymph % (Auto) 28 (10-50) % [place] % (Auto) 7 (0-12) % Eos % (Auto) 1 (0-10) % Baso % (Auto) 1 (0-2.5) % Neut # (Auto) 6.2 (1.8-7.7) Thou/mm3 Lymph # (Auto) 2.8 (1.0-4.8) Thou/mm3 [place] # (Auto) 0.7 (0.0-0.8) Thou/mm3 Eos # (Auto) 0.1 (0.0-0.5) Thou/mm3 Baso # (Auto) 0.1 (0.0-0.2) Thou/mm3 Immature Gran # (Auto) 0.01 H (0.00-0.00) Thou/mm3 Absolute Nucleated RBC 0.00 (0.00-0.00) Thou/mm3 Immature Gran % 0 (0-0) % Nucleated RBC % 0 (0) /100 WBC Sodium 140 (136-145) mMol/L Potassium 3.9 (3.4-5.1) mMol/L Chloride 104 (98-107) mMol/L Carbon Dioxide 27.5 (20.0-31.0) mMol/L Anion Gap 9 (7-16) BUN 14 (9-23) mg/dL Creatinine 1.0 (0.6-1.3) mg/dL Estim Creat Clear Calc 127.4 (>60) mL/min eGFR > 60 (60 - ) See Note BUN/Creatinine Ratio 14 (12-20) Ratio Glucose 91 (74-106) mg/dL Calculated Osmolality 279 (275-295) Calcium 9.9 (8.3-10.6) mg/dL Corrected Calcium 9.9 (8.5-10.1) mg/dL Total Bilirubin 0.7 (0.3-1.2) mg/dL AST 20 (0-34) U/L ALT 23 (10-49) U/L Alkaline Phosphatase 112 (46-116) U/L Troponin I < 0.002 (0.0-0.045) ng/mL Total Protein 8.6 H (5.7-8.2) gm/dL Albumin 5.3 H (3.5-5.0) gm/dL Globulin 3.3 (2.3-3.5) gm/dL Albumin/Globulin Ratio 1.6 (1.2-2.2) Lipase 44 (12-53) U/L Ur Collection Type Voided Urine Color Lt-Yellow (Lt Yel-Yel) Urine Clarity Clear (Clear/Hazy) Urine pH 6.0 (5.0-7.0) Ur Specific [place] 1.028 (1.001-1.035) Urine Protein Negative (Neg - Trace) Urine Glucose (UA) Negative (Negative) Urine Ketones 1+ A (Negative) Urine Blood Negative (Negative) Urine Nitrite Negative (Negative) Urine Bilirubin Negative (Negative) Urine Urobilinogen (Auto) Negative (0.0-1.0) mg/dL Ur Leukocyte Esterase Negative (Negative) Urine RBC 2 (0-3) /hpf Urine WBC 1 (0-5) /hpf Ur Squamous Epith Cells 0 (0-5) /hpf Urine Bacteria None (None) Urine Opiates Screen Negative (Negative) Urine Fentanyl Screen Negative (Negative) Ur Barbiturates Screen Negative (Negative) U Amphetamin/Meth Scrn Negative (Negative) U Benzodiazepines Scrn Negative (Negative) U Cocaine Metab Screen Negative (Negative) U Marijuana (THC) Screen Negative (Negative) Discharge Plan Plan Patient Disposition: HOME (Self Care) Health Concerns: Follow with PMD as directed Take tylenol or motrin as need Return to ED if sx worsen Prescriptions/Referrals Prescriptions/Med Rec: No Action ibuprofen 800 mg tablet 800 mg PO TID PRN (Reason: pain) Qty: 30 0RF Referrals: Eran Aguayo MD [Primary Care Provider] - In 1 week Problem List Clinical Impression: Abdominal pain Patient/Caregiver Discharge Instructions Education Materials: Abdominal Pain Print Language: Haitian Stand Alone Forms: [employer] Award Info., Patient Portal Info Letter
[2024-09-14 00:20] VITALS: RESP 18
== END 2024-09-14 00:21 | disposition home or self-care (01) ==
PROVIDERS: Physician Assistant; Emergency Provider Emergency Medicine; PCP Family Medicine
DX: K40.90 Unilateral inguinal hernia, without obstruction or gangrene, not specified as recurrent (principal); N32.89 Other specified disorders of bladder; I49.8 Other specified cardiac arrhythmias
CPT/HCPCS: 36415; 74176; 80053; 80307; 81001; 83690; 84484; 85025; 87086; 93005; 99284

== ENCOUNTER 2025-04-24 | Emergency (ER) | payer MEDICAID, SELFPAY ==
[2025-04-24 00:01] VITALS: BMI 34.4
--- NOTE | 2025-04-24 00:02 | EKG_ITS ---
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
[2025-04-24 00:11] VITALS: BP 136/77; PULSE 85; RESP 20; TEMP 36.8; O2SAT 96
--- NOTE | 2025-04-24 00:48 | XR_ITS ---
Examination: PA chest single view TECHNIQUE: Upright PA chest single view Date and time: April 24, 2025 1250 hours, comparison 03/03/2024 INDICATIONS: Chest pain vomiting beginning one week ago. FINDINGS: Focus of parenchymal disease in the right midlung, at least 35 mm Normal heart size Left lung clear IMPRESSION: Recommend AP lordotic chest follow-up to further assess parenchymal disease in the right midlung
--- NOTE | 2025-04-24 00:48 | XR_ITS ---
Examination: Abdomen AP single view Technique: AP portable supine abdomen, single view Exam date and time: April 24, 2025 0048 hours INDICATIONS: Vomiting beginning one week ago. FINDINGS: Nonobstructive bowel gas pattern. No free air. No abnormal calcific densities IMPRESSION: Nonobstructive bowel gas pattern
--- NOTE | 2025-04-24 00:59 | EDNOTE_ITS ---
ED Chest Pain RME/HPI General Chief Complaint: Chest Pain Stated Complaint: CHEST THIGHTNESS, VOMITING, HIGH BP Time Seen by Provider: 04/24/25 00:47 Arrival date/time: 04/24/25 00:00 34M with history of cocaine use presents to ED with 1 week of cough and sore throat, as well as 1 day of chest tightness and N/V. Patient has also been constipated. Patient went to PCP and was given symptom control meds for URI. Patient had neg strep test. Limitations: no limitations Related Data Previous Rx's ?Medication ?Instructions ?Recorded ibuprofen 800 mg tablet 800 mg PO TID PRN pain #30 t abs 03/23/24 ondansetron 4 mg disintegrating 4 mg PO Q8H PRN nausea and 04/24/25 tablet vomiting #14 tabs Allergies Allergy/AdvReac Type Severity Reaction Status Date / Time No Known Allergies Allergy Unknown Verified 04/24/25 00:01 Review of Systems Review of Systems Systems Reviewed: All systems reviewed, normal except as documented Constitutional Constitutional: Reports system reviewed and no additional complaints, except as documented, Denies fever(s) and Denies headache(s) ENT Ears, Nose, Mouth, and Throat: Reports as per HPI, Denies disequilibrium, Denies headache(s) and Reports sore throat Cardiovascular Cardiovascular: Reports system reviewed and no additional complaints, except as documented, Reports as per HPI, Reports chest pain and Denies dyspnea Respiratory Respiratory: Reports system reviewed and no additional complaints, except as documented, Reports as per HPI, Reports cough and Denies dyspnea Gastrointestinal Gastrointestinal: Reports system reviewed and no additional complaints, except as documented, Reports as per HPI, Reports abdominal pain, Reports constipation, Reports nausea and Reports vomiting Neurologic Neurologic: Reports system reviewed and no additional complaints, except as documented, Denies confusion, Denies disequilibrium and Denies headache(s) Psychiatric Psychiatric: Denies confusion Past Medical History Past Medical History NEUROLOGIC: Negative Neurological Disorders CARDIAC: Negative Cardiac Disorders or Congestive Heart Failure RESPIRATORY: Negative Chronic Obstructive Pulmonary Disease (COPD) or Asthma GENITOURINARY: Negative Renal Disease ENDOCRINE: Negative Diabetes Mellitus Type 1 or Diabetes Mellitus Type 2 HEMATOLOGIC: Negative Sickle Cell Disease Social History SMOKING STATUS: Never smoker SUBSTANCE USE: marijuana ED Exam General Limitations: Present no limitations General appearance: Present alert and in no apparent distress Head Head exam: Present atraumatic Eye Eye exam: Present normal appearance, PERRL and EOMI ENT ENT exam: Present normal exam, normal oropharynx and mucous membranes moist Neck Neck exam: Present normal inspection, full ROM and trachea midline Chest Chest inspection: Present normal inspection and symmetric chest wall rise Respiratory Respiratory exam: Present normal lung sounds bilaterally Cardiovascular Cardiovascular exam: Present regular rate, normal rhythm and normal heart sounds Abdominal Exam Abdominal exam: Present soft and normal bowel sounds Extremities Exam Extremities exam: Present normal inspection and full ROM Back Exam Back exam: Present normal inspection and full ROM Neurological Exam Neurological exam: Present alert, oriented X3 and CN II-XII intact Psychiatric Psychiatric exam: Present normal affect and normal mood Skin Skin exam: Present warm, dry, intact and normal color Course Quality Measures none Orders Category Date Time Status Bedside COVID-19 Antigen Test NOW Care 04/24/25 00:48 Completed Bedside Influenza A&B Antigen Test NOW Care 04/24/25 00:48 Completed EKG (ED ONLY) *Do not use* NOW Care 04/24/25 00:02 Completed EKG (ED Only) Stat Exams 04/24/25 00:02 Draft XR abdomen 1V Stat Exams 04/24/25 00:48 Taken XR chest 1V portable Stat Exams 04/24/25 00:48 Taken CBC Stat Lab 04/24/25 01:22 Completed Comprehensive Metabolic Panel Stat Lab 04/24/25 01:22 Completed Lipase Stat Lab 04/24/25 01:22 Completed Troponin I Stat Lab 04/24/25 01:22 Completed Ondansetron Odt [Zofran Odt] Med 04/24/25 01:01 Discontinued 4 mg PO X1 ONE Vital Signs Vital signs: Vital Signs Temperature 98.3 F 04/24/25 00:11 Pulse Rate 85 04/24/25 00:11 Respiratory Rate 20 04/24/25 00:11 Blood Pressure 136/77 H 04/24/25 00:11 Pulse Oximetry (%) 96 04/24/25 00:11 Oxygen Delivery Method Room Air 04/24/25 00:11 O2 at 96% on RA and WNLs Chest Pain MDM Narrative MDM Narrative:: 34M with history of cocaine use presents to ED with 1 week of cough and sore throat, as well as 1 day of chest tightness and N/V. Patient has also been constipated. Patient went to PCP and was given symptom control meds for URI. Patient had neg strep test. Physical exam reveals no gross ab tenderness. Normal WOB. Patient is afebrile, calm, and alert. EKG is NSR. Wet CXR read unremarkable pending official report. CMP unremarkable. Lipase normal. PO challenge passed. Swabs neg. Normal trop. Patient data External records reviewed:: [facility] previous records Clinical information provided by:: patient Social determinants that could affect healthcare access:: substance use Patient has the following chronic illnesses:: cocaine use How is presenting disease/condition affected by chronic disease/condition?: exacerbated by Evaluation data The following diagnostics were reviewed and interpreted by me:: lab results, radiology exam(s) and EKG tracing(s) Lab and/or radiology exams considered but not ordered:: ordered Interpretation Summary: above Medications / Prescriptions Medications or Prescriptions considered but not ordered:: ordered Medication administrations:: Medication Administration History Discontinued Medications Ondansetron HCl (Ondansetron Odt 4 Mg Tabrap) 4 mg PO X1 ONE; Protocol Stop: 04/24/25 01:02 Last Admin: 04/24/25 01:15 Dose: 4 mg Documented By: MELLO Comments: MANUAL ENTER PROVIDER WAS IN CHART COULDNT SAVE AT TIME OF ADMIN SAVED AT LATER TIME AFTER IT CLEARED AND WAS ABLE TO SAVE above Consultations Consultation(s) initiated? (list below): No Diagnosis Chest Pain Differential Diagnosis: fracture of rib, pneumothorax, stable angina, unstable angina pectoris, atypical chest pain, st elevation myocardial infarction, costochondritis, chest pain, biliary colic and other (viral syndrome, gastroenteritis, ACS) Most likely diagnosis given after review of the tests above:: viral syndrome Admission Indicated Admission indicated?: not indicated Admission Request Was there a request for admission?: No Disposition Plan Disposition Plan: Discharge Discharge Attestation Discharge Attestation: The patient and all family members were given an opportunity to ask questions and understood the discharge instructions. Discharge instructions specifically effects, indications for sooner follow up or return to the emergency department, and the expected course of current diagnosis. Patient condition: Stable Discharge Plan Plan Patient Disposition: HOME (Self Care) Discharge Disposition comment: Stable Prescriptions/Referrals Prescriptions/Med Rec: New ondansetron 4 mg tablet,disintegrating 4 mg PO Q8H PRN (Reason: nausea and vomiting) Qty: 14 0RF No Action ibuprofen 800 mg tablet 800 mg PO TID PRN (Reason: pain) Qty: 30 0RF Referrals: Eran Aguayo MD [Primary Care Provider] - In 1 week Problem List Clinical Impression: Viral syndrome Patient/Caregiver Discharge Instructions Education Materials: ED Viral Syndrome (Adult) Additional Instructions: Please follow-up with PCP within 24-48 hours and return immediately if symptoms worsen. Keep hydrated. Advance diet as tolerated. Print Language: Kazakh Stand Alone Forms: Patient Portal Info Letter PA/CLEANING LABORER Supervising Physician PA/CLEANING LABORER Supervising Physician: Dr. Magallon
[2025-04-24] MEDS: ONDANSETRON ODT 4 MG TABRAP PO (01:15)
[2025-04-24 01:35] LABS: Basophils # (Auto) 0.1 Thou/mm3 (0.0-0.2); Basophils % (Auto) 1 % (0-2.5); Eosinophils # (Auto) 0.2 Thou/mm3 (0.0-0.5); Eosinophils % (Auto) 3 % (0-10); Hematocrit 41.3 % (41.0-53.0); Hemoglobin 13.7 g/dL (13.5-16.0); Immature Granulocytes Auto 0.02 Thou/mm3 (0.00-0.00); Lymphocytes # (Auto) 1.8 Thou/mm3 (1.0-4.8); Lymphocytes % (Auto) 21 % (10-50); Mean Corpuscular HGB Conc 33.2 g/dl (31.0-37.0); Mean Corpuscular Hemoglobin 29.7 pg (25.0-35.0); Mean Corpuscular Volume 90 fL (80-100); Monocytes # (Auto) 0.8 Thou/mm3 (0.0-0.8); Monocytes % (Auto) 9 % (0-12); Neutrophils # (Auto) 5.8 Thou/mm3 (1.8-7.7); Neutrophils % (Auto) 66 % (37-80); Nucleated Red Blood Cell # 0.00 Thou/mm3 (0.00-0.00); Nucleated Red Blood Cell % 0 /100 WBC (0); Platelet Count 209 Thou/mm3 (140-440); RDW Standard Deviation 42.1 fL (35.1-43.9); Red Blood Count 4.61 Miln/mm3 (4.50-5.90); White Blood Count 8.8 Thou/mm3 (3.8-10.6)
[2025-04-24 01:53] LABS: Alanine Aminotransferase 36 U/L (10-49); Albumin, Serum 4.5 gm/dL (3.5-5.0); Albumin/Globulin Ratio 1.7 (1.2-2.2); Alkaline Phosphatase 133 U/L (46-116); Anion Gap 9 (7-16); Aspartate Amino Transferase 23 U/L (0-34); BUN/Creatinine Ratio 12 Ratio (12-20); Bilirubin,Total 0.4 mg/dL (0.3-1.2); Blood Urea Nitrogen 12 mg/dL (9-23); Calcium 10.0 mg/dL (8.3-10.6); Calcium (Corrected) 10.0 mg/dL (8.5-10.1); Carbon Dioxide 28.6 mMol/L (20.0-31.0); Chloride 106 mMol/L (98-107); Creatinine (Component) 1.0 mg/dL (0.6-1.3); Estimated Creatinine Clearance 127.4 mL/min (>60); Globulin 2.6 gm/dL (2.3-3.5); Glucose 109 mg/dL (74-106); Lipase 36 U/L (12-53); Osmolality,Calculated 287 (275-295); Potassium 3.9 mMol/L (3.4-5.1); Sodium 144 mMol/L (136-145); Total Protein 7.1 gm/dL (5.7-8.2); Troponin I < 0.002 ng/mL (0.0-0.045); eGFR > 60 See Note
== END 2025-04-24 02:33 | disposition home or self-care (01) ==
PROVIDERS: Physician Assistant; Emergency Provider Emergency Medicine; PCP Family Medicine
DX: B34.9 Viral infection, unspecified (principal); R07.89 Other chest pain
CPT/HCPCS: 36415; 71045; 74018; 80053; 83690; 84484; 85025; 87400; 87811; 93005; 99283; Q0162

== ENCOUNTER 2025-06-04 05:33 | Emergency (ER) | payer MEDICAID, SELFPAY ==
[2025-06-04 05:34] VITALS: BMI 34.4
--- NOTE | 2025-06-04 05:37 | EKG_ITS ---
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
[2025-06-04 05:45] VITALS: BP 130/88; PULSE 78; RESP 18; TEMP 36.6; O2SAT 97
--- NOTE | 2025-06-04 05:54 | PD.EDRME ---
Rapid Medical Screening Exam RME Arrival date/time: 06/04/25 05:33 Chief Complaint: Chest Pain Time Seen by Provider: 06/04/25 05:51 Vital signs: Vital Signs Temperature 97.8 F 06/04/25 05:45 Pulse Rate 78 06/04/25 05:45 Respiratory Rate 18 06/04/25 05:45 Blood Pressure 130/88 H 06/04/25 05:45 Pulse Oximetry (%) 97 06/04/25 05:45 Oxygen Delivery Method Room Air 06/04/25 05:45 RME Narrative: Patient woke up complaining of left-sided chest pain with shortness of breath worse with deep breaths. Denies nausea vomiting, diaphoresis, family history of early cardiac disease, drinking, smoking.
--- NOTE | 2025-06-04 05:55 | XR_ITS ---
EXAMINATION: PA lateral chest 2 views TECHNIQUE: Upright PA and lateral chest 2 views Date and time: June 04, 2025, 0556 hours, comparison April 24, 2025 INDICATIONS: Chest pain difficulty breathing today. FINDINGS: Normal heart size Lungs are clear. Osseous structures are intact. IMPRESSION: No active disease
[2025-06-04 06:30] LABS: Collection Type, Urine Clean Catch
[2025-06-04 06:31] LABS: Basophils # (Auto) 0.1 Thou/mm3 (0.0-0.2); Basophils % (Auto) 1 % (0-2.5); Eosinophils # (Auto) 0.2 Thou/mm3 (0.0-0.5); Eosinophils % (Auto) 2 % (0-10); Hematocrit 41.9 % (41.0-53.0); Hemoglobin 14.4 g/dL (13.5-16.0); Immature Granulocytes Auto 0.02 Thou/mm3 (0.00-0.00); Lymphocytes # (Auto) 2.1 Thou/mm3 (1.0-4.8); Lymphocytes % (Auto) 27 % (10-50); Mean Corpuscular HGB Conc 34.4 g/dl (31.0-37.0); Mean Corpuscular Hemoglobin 30.1 pg (25.0-35.0); Mean Corpuscular Volume 88 fL (80-100); Monocytes # (Auto) 0.6 Thou/mm3 (0.0-0.8); Monocytes % (Auto) 8 % (0-12); Neutrophils # (Auto) 4.7 Thou/mm3 (1.8-7.7); Neutrophils % (Auto) 61 % (37-80); Nucleated Red Blood Cell # 0.00 Thou/mm3 (0.00-0.00); Nucleated Red Blood Cell % 0 /100 WBC (0); Platelet Count 221 Thou/mm3 (140-440); RDW Standard Deviation 41.6 fL (35.1-43.9); Red Blood Count 4.79 Miln/mm3 (4.50-5.90); White Blood Count 7.7 Thou/mm3 (3.8-10.6)
[2025-06-04 06:35] LABS: Bilirubin,Urine Negative (Negative); Blood,Urine Negative (Negative); Clarity,Urine Clear (Clear/Hazy); Color,Urine Colorless (Lt Yel-Yel); Culture Indicated,Urine Not Indicated; Glucose, Urine Negative (Negative); Ketones,Urine Negative (Negative); Leukocyte Esterase,Urine Negative (Negative); Nitrite,Urine Negative (Negative); PH,Urine 6.0 (5.0-7.0); Protein,Urine Negative (Neg - Trace); RBC,Urine < 1 /hpf (0-3); Specific Gravity,Urine 1.015 (1.001-1.035); Squamous Epithelial Cell,Urine < 1 /hpf (0-5); Urobilinogen,Urine Negative mg/dL (0.0-1.0); WBC,Urine < 1 /hpf (0-5)
[2025-06-04 06:53] LABS: B-Type Natriuretic Peptide < 20 pg/mL (0-100)
[2025-06-04 06:55] LABS: Alanine Aminotransferase 38 U/L (10-49); Albumin, Serum 4.6 gm/dL (3.5-5.0); Albumin/Globulin Ratio 1.5 (1.2-2.2); Alkaline Phosphatase 113 U/L (46-116); Anion Gap 9 (7-16); Aspartate Amino Transferase 25 U/L (0-34); BUN/Creatinine Ratio 8 Ratio (12-20); Bilirubin,Total 0.6 mg/dL (0.3-1.2); Blood Urea Nitrogen 8 mg/dL (9-23); Calcium 8.9 mg/dL (8.3-10.6); Calcium (Corrected) 8.9 mg/dL (8.5-10.1); Carbon Dioxide 25.1 mMol/L (20.0-31.0); Chloride 105 mMol/L (98-107); Creatinine (Component) 1.0 mg/dL (0.6-1.3); Estimated Creatinine Clearance 127.4 mL/min (>60); Globulin 3.0 gm/dL (2.3-3.5); Glucose 122 mg/dL (74-106); Lipase 35 U/L (12-53); Osmolality,Calculated 276 (275-295); Potassium 4.1 mMol/L (3.4-5.1); Sodium 139 mMol/L (136-145); Total Protein 7.6 gm/dL (5.7-8.2); Troponin I < 0.002 ng/mL (0.0-0.045); eGFR > 60 See Note
[2025-06-04 07:04] LABS: D-Dimer < 250 ng/mL (<600)
[2025-06-04 07:07] LABS: INR 0.9 (0.9-1.3); Partial Thromboplastin Time 34.9 Seconds (22.0-36.0); Prothrombin Time 9.7 Seconds (9.0-12.2)
--- NOTE | 2025-06-04 07:46 | PD.EDCHEST ---
ED Chest Pain RME/HPI General Chief Complaint: Chest Pain Stated Complaint: CHEST PAIN AND SOB Time Seen by Provider: 06/04/25 05:51 Source: patient Arrival date/time: 06/04/25 05:33 34-year-old male with no known medical history presents to the emergency room with a chief complaint of left-sided sternal chest pain and shortness of breath x 1 day Mode of arrival: ambulatory Limitations: no limitations RME / HPI RME / HPI narrative: Patient woke up complaining of left-sided chest pain with shortness of breath worse with deep breaths. Denies nausea vomiting, diaphoresis, family history of early cardiac disease, drinking, smoking. Related Data Previous Rx's ?Medication ?Instructions ?Recorded ibuprofen 800 mg tablet 800 mg PO TID PRN pain #30 tabs 03/23/24 ondansetron 4 mg disintegrating 4 mg PO Q8H PRN nausea and 04/24/25 tablet vomiting #14 tabs Allergies Allergy/AdvReac Type Severity Reaction Status Date / Time No Known Allergies Allergy Unknown Verified 04/24/25 00:01 Review of Systems Review of Systems Systems Reviewed: All systems reviewed, normal except as documented Constitutional Constitutional: Reports system reviewed and no additional complaints, except as documented, Denies fatigue, Denies fever(s), Denies headache(s) and Denies weakness Eyes Eyes: Reports system reviewed and no additional complaints, except as documented, Denies blurry vision and Denies change in vision ENT Ears, Nose, Mouth, and Throat: Reports system reviewed and no additional complaints, except as documented, Denies otalgia, Denies headache(s), Denies nasal congestion, Denies throat swelling and Denies vertigo Cardiovascular Cardiovascular: Reports system reviewed and no additional complaints, except as documented, Reports chest pain, Reports dyspnea and Denies dyspnea on exertion Respiratory Respiratory: Reports system reviewed and no additional complaints, except as documented, Denies chest congestion, Denies cough, Reports dyspnea, Denies dyspnea on exertion and Denies wheezing Gastrointestinal Gastrointestinal: Reports system reviewed and no additional complaints, except as documented, Denies abdominal pain, Denies cramping, Denies nausea and Denies vomiting Genitourinary Genitourinary: Reports system reviewed and no additional complaints, except as documented, Denies dysuria and Denies hematuria Musculoskeletal Musculoskeletal: Reports system reviewed and no additional complaints, except as documented and Denies back pain Integumentary/Breasts Skin/Breast: Reports system reviewed and no additional complaints, except as documented and Denies wounds Neurologic Neurologic: Reports system reviewed and no additional complaints, except as documented, Denies confusion, Denies headache(s), Denies lack of coordination, Denies vertigo and Denies weakness Psychiatric Psychiatric: Reports system reviewed and no additional complaints, except as documented, Denies anxiety, Denies confusion, Denies depression, Denies paranoia, Denies suicidal ideation and Denies tactile hallucinations Endocrine Endocrine: Reports system reviewed and no additional complaints, except as documented and Denies fatigue Hematologic/Lymphatic Hematologic/Lymphatic: Reports system reviewed and no additional complaints, except as documented and Denies lymphadenopathy Allergic/Immunologic Allergic/Immunologic: Reports system reviewed and no additional complaints, except as documented, Denies throat swelling, Denies urticaria and Denies wheezing Past Medical History Past Medical History NEUROLOGIC: Negative Neurological Disorders CARDIAC: Negative Cardiac Disorders or Congestive Heart Failure RESPIRATORY: Negative Chronic Obstructive Pulmonary Disease (COPD) or Asthma GENITOURINARY: Negative Renal Disease ENDOCRINE: Negative Diabetes Mellitus Type 1 or Diabetes Mellitus Type 2 HEMATOLOGIC: Negative Sickle Cell Disease Social History SMOKING STATUS: Never smoker SUBSTANCE USE: marijuana ED Exam General Limitations: Present no limitations General appearance: Present alert and in no apparent distress Head Head exam: Present atraumatic Eye Eye exam: Present normal appearance, PERRL and EOMI ENT ENT exam: Present normal exam, normal oropharynx and mucous membranes moist Neck Neck exam: Present normal inspection, full ROM and trachea midline Chest Chest inspection: Present normal inspection and symmetric chest wall rise Respiratory Respiratory exam: Present normal lung sounds bilaterally; Absent respiratory distress, wheezes, stridor, accessory muscle use or prolonged expiratory phase Cardiovascular Cardiovascular exam: Present regular rate, normal rhythm and normal heart sounds; Absent bradycardia, tachycardia or irregular rhythm Abdominal Exam Abdominal exam: Present soft and normal bowel sounds; Absent tenderness Extremities Exam Extremities exam: Present normal inspection and full ROM Back Exam Back exam: Present normal inspection and full ROM Neurological Exam Neurological exam: Present alert, oriented X3 and CN II-XII intact Psychiatric Psychiatric exam: Present normal affect and normal mood Skin Skin exam: Present warm, dry, intact and normal color Course Quality Measures none Orders Category Date Time Status EKG (ED ONLY) *Do not use* NOW Care 06/04/25 05:38 Active EKG (ED Only) Stat Exams 06/04/25 05:37 Draft XR chest 2V Stat Exams 06/04/25 05:55 Completed B-Type Natriuretic Peptide Stat Lab 06/04/25 06:15 Completed CBC Stat Lab 06/04/25 06:15 Completed Comprehensive Metabolic Panel Stat Lab 06/04/25 06:15 Completed D-Dimer Stat Lab 06/04/25 06:15 Completed Lipase Stat Lab 06/04/25 06:15 Completed Partial Thromboplastin Time Stat Lab 06/04/25 06:15 Completed Prothrombin Time with INR Stat Lab 06/04/25 06:15 Completed Troponin I Stat Lab 06/04/25 06:15 Completed Urinalysis, C/S if Indicated Stat Lab 06/04/25 06:27 Completed Vital Signs Vital signs: Vital Signs Temperature 97.8 F 06/04/25 05:45 Pulse Rate 78 06/04/25 05:45 Respiratory Rate 18 06/04/25 05:45 Blood Pressure 130/88 H 06/04/25 05:45 Pulse Oximetry (%) 97 06/04/25 05:45 Oxygen Delivery Method Room Air 06/04/25 05:45 Chest Pain MDM Narrative MDM Narrative:: 34-year-old male with no known medical history presents to the emergency room with a chief complaint of left-sided sternal chest pain and shortness of breath x 1 day Patient is hemodynamically stable and in no apparent distress. Patient is afebrile not tachycardic not tachypneic Physical examination shows clear bilateral lung sounds there is no wheezing or any abnormal breath sounds. The patient has a strong and regular rhythm S1 and S2 noted. No murmurs no clicks no gallops. Chest x-ray was completed and was negative for any pneumonic infiltrates. CBC CMP were within normal limits. Troponin was negative. D-dimer was negative. Patient has a heart score of 1. Patient is a low risk. Patient was discharged and educated to follow-up with primary care provider in the next 24 to 48 hours and return to the emergency room for any evidence of worsening signs or symptoms Patient data External records reviewed:: [facility] previous records Clinical information provided by:: patient Social determinants that could affect healthcare access:: none Patient has the following chronic illnesses:: No chronic illness How is presenting disease/condition affected by chronic disease/condition?: no chronic disease Evaluation data The following diagnostics were reviewed and interpreted by me:: lab results and radiology exam(s) Lab and/or radiology exams considered but not ordered:: Labs and radiology exams considered and ordered Interpretation Summary: Chest x-ray-no pneumonic infiltrates Medications / Prescriptions Medications or Prescriptions considered but not ordered:: No medication given Medication administrations:: No medication given Consultations Consultation(s) initiated? (list below): No Diagnosis Chest Pain Differential Diagnosis: pneumothorax, stable angina, atypical chest pain, st elevation myocardial infarction, costochondritis and chest pain Most likely diagnosis given after review of the tests above:: Chest pain Admission Indicated Admission indicated?: not indicated Admission Request Was there a request for admission?: No Disposition Plan Disposition Plan: Discharge Discharge Attestation Discharge Attestation: The patient and all family members were given an opportunity to ask questions and understood the discharge instructions. Discharge instructions specifically effects, indications for sooner follow up or return to the emergency department, and the expected course of current diagnosis. Patient condition: Stable Discharge Plan Plan Patient Disposition: HOME (Self Care) Discharge Disposition comment: Stable Prescriptions/Referrals Prescriptions/Med Rec: No Action ibuprofen 800 mg tablet 800 mg PO TID PRN (Reason: pain) Qty: 30 0RF ondansetron 4 mg tablet,disintegrating 4 mg PO Q8H PRN (Reason: nausea and vomiting) Qty: 14 0RF Referrals: Eran Aguayo MD [Primary Care Provider, Family Practice] - In 1 week Problem List Clinical Impression: Chest pain Patient/Caregiver Discharge Instructions Education Materials: ED Chest Pain, Uncertain Cause Additional Instructions: Please follow-up with your primary care provider in the next 24 to 48 hours Your cardiac examination was within normal limits. Your blood work was within normal limits Your chest x-ray was negative for any pneumonia For any evidence of worsening signs or symptoms return to the emergency room immediate Print Language: Yoruba Stand Alone Forms: Stacy Award Info., Work/School Release, Patient Portal Info Letter JOB/PEPITO Supervising Physician JOB/PEPITO Supervising Physician: Dr. Dee
[2025-06-04 08:06] VITALS: BP 122/82; PULSE 72; RESP 16; TEMP 36.8; O2SAT 98
== END 2025-06-04 08:08 | disposition home or self-care (01) ==
PROVIDERS: Physician Assistant; Emergency Provider Emergency Medicine; PCP Family Medicine
DX: R07.9 Chest pain, unspecified (principal)
CPT/HCPCS: 36415; 71046; 80053; 81001; 83690; 83880; 84484; 85025; 85379; 85610; 85730; 93005; 99283

== ENCOUNTER 2025-07-16 16:33 | Emergency (ER) | payer MEDICAID, SELFPAY ==
[2025-07-16 17:15] VITALS: BP 130/82; PULSE 62; RESP 18; TEMP 36.7; O2SAT 97; BMI 37.3
--- NOTE | 2025-07-16 17:23 | XR_ITS ---
Examination: Abdomen sonogram, Limited Date and time of exam: July 16, 2025, 1702 hours INDICATIONS: Onset abdominal pain today Technique: Real-time langford scale transabdominal sonographic images of the upper abdomen obtained. Findings: Normal gallbladder Normal common bile duct 0.3 cm Pancreatic head 3.3 cm Liver 16.0 cm fatty infiltration no focal liver lesions Normal hepatopetal portal venous flow Patent IVC IMPRESSION: Normal gallbladder Normal common bile duct Mild hepatomegaly fatty infiltration
--- NOTE | 2025-07-16 17:23 | PD.EDRME ---
Rapid Medical Screening Exam [facility] Arrival date/time: 07/16/25 16:33 34-year-old male with no known medical history presents to the emergency room with a chief complaint of right upper quadrant abdominal tenderness and vomiting x 2 days I have greeted and performed a focused initial assessment of this patient. A comprehensive ED assessment and evaluation of the patient, analysis of all test results, and completion of the medical decision making process will be conducted by additional ED providers. Chief Complaint: Abdominal Pain Time Seen by Provider: 07/16/25 17:06 Vital signs: Vital Signs Temperature 98.1 F 07/16/25 17:15 Pulse Rate 62 07/16/25 17:15 Respiratory Rate 18 07/16/25 17:15 Blood Pressure 130/82 07/16/25 17:15 Pulse Oximetry (%) 97 07/16/25 17:15 Oxygen Delivery Method Room Air 07/16/25 17:15 Vital signs reviewed by provider: Yes Exam: Right upper quadrant tenderness with palpation. Positive Cope sign Clear bilateral lung sounds Clinical Impression: Cholelithiasis/cholecystitis/gastroenteritis
[2025-07-16 18:04] LABS: Basophils # (Auto) 0.1 Thou/mm3 (0.0-0.2); Basophils % (Auto) 1 % (0-2.5); Eosinophils # (Auto) 0.1 Thou/mm3 (0.0-0.5); Eosinophils % (Auto) 1 % (0-10); Hematocrit 40.5 % (41.0-53.0); Hemoglobin 13.6 g/dL (13.5-16.0); Immature Granulocytes Auto 0.02 Thou/mm3 (0.00-0.00); Lymphocytes # (Auto) 2.4 Thou/mm3 (1.0-4.8); Lymphocytes % (Auto) 27 % (10-50); Mean Corpuscular HGB Conc 33.6 g/dl (31.0-37.0); Mean Corpuscular Hemoglobin 29.6 pg (25.0-35.0); Mean Corpuscular Volume 88 fL (80-100); Monocytes # (Auto) 0.7 Thou/mm3 (0.0-0.8); Monocytes % (Auto) 7 % (0-12); Neutrophils # (Auto) 5.7 Thou/mm3 (1.8-7.7); Neutrophils % (Auto) 64 % (37-80); Nucleated Red Blood Cell # 0.00 Thou/mm3 (0.00-0.00); Nucleated Red Blood Cell % 0 /100 WBC (0); Platelet Count 212 Thou/mm3 (140-440); RDW Standard Deviation 42.9 fL (35.1-43.9); Red Blood Count 4.60 Miln/mm3 (4.50-5.90); White Blood Count 8.9 Thou/mm3 (3.8-10.6)
[2025-07-16 18:10] LABS: Collection Type, Urine Clean Catch; Squamous Epithelial Cell,Urine 0 /hpf (0-5)
[2025-07-16] MEDS: HYDROcodone/APAP 5/325 TABLET 1 TAB PO (18:10)
[2025-07-16] MEDS: ONDANSETRON ODT 4 MG TABRAP PO (18:12)
[2025-07-16 18:20] LABS: Bilirubin,Urine Negative (Negative); Blood,Urine Negative (Negative); Clarity,Urine Clear (Clear/Hazy); Color,Urine Lt-Yellow (Lt Yel-Yel); Glucose, Urine Negative (Negative); Ketones,Urine Negative (Negative); Leukocyte Esterase,Urine Negative (Negative); Nitrite,Urine Negative (Negative); PH,Urine 6.0 (5.0-7.0); Protein,Urine Negative (Neg - Trace); RBC,Urine 1 /hpf (0-3); Specific Gravity,Urine 1.023 (1.001-1.035); Urobilinogen,Urine Negative mg/dL (0.0-1.0); WBC,Urine 1 /hpf (0-5)
[2025-07-16 18:24] LABS: Alanine Aminotransferase 35 U/L (10-49); Albumin, Serum 4.6 gm/dL (3.5-5.0); Albumin/Globulin Ratio 1.8 (1.2-2.2); Alkaline Phosphatase 113 U/L (46-116); Anion Gap 9 (7-16); Aspartate Amino Transferase 11 U/L (0-34); BUN/Creatinine Ratio 9 Ratio (12-20); Bilirubin,Total 0.5 mg/dL (0.3-1.2); Blood Urea Nitrogen 9 mg/dL (9-23); Calcium 9.6 mg/dL (8.3-10.6); Calcium (Corrected) 9.6 mg/dL (8.5-10.1); Carbon Dioxide 29.7 mMol/L (20.0-31.0); Chloride 104 mMol/L (98-107); Creatinine (Component) 1.0 mg/dL (0.6-1.3); Estimated Creatinine Clearance 132.7 mL/min (>60); Globulin 2.6 gm/dL (2.3-3.5); Glucose 88 mg/dL (74-106); Lipase 33 U/L (12-53); Osmolality,Calculated 282 (275-295); Potassium 4.0 mMol/L (3.4-5.1); Sodium 143 mMol/L (136-145); Total Protein 7.2 gm/dL (5.7-8.2); eGFR > 60 See Note
[2025-07-16 21:36] VITALS: BP 137/85; PULSE 72; RESP 16; TEMP 36.7; O2SAT 97
--- NOTE | 2025-07-16 21:46 | EDNOTE_ITS ---
ED Abdominal Pain RME/HPI General Chief Complaint: Abdominal Pain Stated complaint: RUQ ABD PAIN Time seen by provider: 07/16/25 17:06 Arrival date/time: 07/16/25 16:33 RME / HPI RME / HPI narrative: 07/16/25 16:33 34-year-old male with no known medical history presents to the emergency room with a chief complaint of right upper quadrant abdominal tenderness and vomiting x 2 days I have greeted and performed a focused initial assessment of this patient. A comprehensive ED assessment and evaluation of the patient, analysis of all test results, and completion of the medical decision making process will be conducted by additional ED providers. Dr. Mann?s Main ED Evaluation: 34yo male with no significant past medical history presents to the ED for a chief complaint of RUQ pain x yesterday. No radiation or migration. Patient reports associated nausea and vomiting. Denies any diarrhea, fever, chills, back pain, dysuria, or any other associated symptoms. Patient endorses experiencing similar symptoms a few years ago, but was not evaluated for it. NKA. Related Data Previous Rx's ?Medication ?Instructions ?Recorded ibuprofen 800 mg tablet 800 mg PO TID PRN pain #30 t abs 03/23/24 ondansetron 4 mg disintegrating 4 mg PO Q8H PRN nausea and 04/24/25 tablet vomiting #14 tabs Allergies Allergy/AdvReac Type Severity Reaction Status Date / Time No Known Allergies Allergy Unknown Verified 04/24/25 00:01 Review of Systems Review of Systems Systems Reviewed: All systems reviewed, normal except as documented Past Medical History Past Medical History NEUROLOGIC: Negative Neurological Disorders CARDIAC: Negative Cardiac Disorders or Congestive Heart Failure RESPIRATORY: Negative Chronic Obstructive Pulmonary Disease (COPD) or Asthma GENITOURINARY: Negative Renal Disease ENDOCRINE: Negative Diabetes Mellitus Type 1 or Diabetes Mellitus Type 2 HEMATOLOGIC: Negative Sickle Cell Disease Social History SMOKING STATUS: Never smoker SUBSTANCE USE: marijuana ED Exam Narrative Physical exam: Generally patient is alert and oriented x 3 in no obvious distress, heart regular rate and rhythm, lungs clear to auscultation equal bilaterally, abdomen soft bowel sounds present obese nondistended nontympanic and nontender currently. Course Quality Measures none Orders Category Date Time Status US gall bladder Stat Exams 07/16/25 17:23 Completed CBC Stat Lab 07/16/25 17:50 Completed CMP [Comprehensive Metabolic Panel] Stat Lab 07/16/25 17:50 Completed Lipase Stat Lab 07/16/25 17:50 Completed UA [Urinalysis] Stat Lab 07/16/25 18:02 Completed Urine Culture Stat Lab 07/16/25 18:02 Received HYDROcodone*/APAP 5/325 [[place] 5/325] Med 07/16/25 17:23 Discontinued 1 tab PO X1 ONE Ondansetron Odt [Zofran Odt] Med 07/16/25 17:23 Discontinued 4 mg PO X1 ONE Vital Signs Vital signs: Vital Signs Temperature 98.1 F 07/16/25 17:15 Pulse Rate 62 07/16/25 17:15 Respiratory Rate 18 07/16/25 17:15 Blood Pressure 130/82 07/16/25 17:15 Pulse Oximetry (%) 97 07/16/25 17:15 Oxygen Delivery Method Room Air 07/16/25 17:15 Abdominal Pain MDM MDM Narrative MDM Narrative:: Scribe Attestation: 07/16/25 - Anum Gross am scribing for and in the presence of Dr. Mann. There is no fever or leukocytosis. I interpreted all labs. LFTs are normal. Urinalysis is unremarkable. Gallbladder ultrasound was negative. Patient will be discharged in stable condition. Patient data External records reviewed:: [facility] previous records (Per chart review, patient was seen here on 06/04/25 for chest pain.) Clinical information provided by:: patient Social determinants that could affect healthcare access:: none Patient has the following chronic illnesses:: none How is presenting disease/condition affected by chronic disease/condition?: no chronic disease Evaluation data The following diagnostics were reviewed and interpreted by me:: lab results and radiology exam(s) Lab and/or radiology exams considered but not ordered:: none Interpretation Summary: [facility] Report Signed Patient: GUANAKO RODRIGUEZ [facility]. Record#: [id number] Birthdate: 1990 Age/Sex: 34 / M Location: [facility] Attending Dr: Ordering Physician: Alex Ruiz Date of Service: 07/16/25 Procedure(s): US gall bladder Accession Number(s): [id number] cc: Alex Ruiz; Giancarlo Vazquez MD; NO PRIMARY/FAMILY,PHYSICIAN~ Examination: Abdomen sonogram, Limited Date and time of exam: July 16, 2025, 1702 hours INDICATIONS: Onset abdominal pain today Technique: Real-time langford scale transabdominal sonographic images of the upper abdomen obtained. Findings: Normal gallbladder Normal common bile duct 0.3 cm Pancreatic head 3.3 cm Liver 16.0 cm fatty infiltration no focal liver lesions Normal hepatopetal portal venous flow Patent IVC IMPRESSION: Normal gallbladder Normal common bile duct Mild hepatomegaly fatty infiltration Dictated By: Giancarlo Vazquez MD Signed By: <Electronically signed by Giancarlo Vazquez MD in OV> 07/16/25 1750 Medications / Prescriptions Medications or Prescriptions considered but not ordered:: none Medication administrations:: Medication Administration History Discontinued Medications Hydrocodone Bitart/Acetaminophen (Hydrocodone/Apap 5/325 Tablet) 1 tab PO X1 ONE Stop: 07/16/25 17:24 Last Admin: 07/16/25 18:10 Dose: 1 tab Documented By: NEEMA Ondansetron HCl (Ondansetron Odt 4 Mg Tabrap) 4 mg PO X1 ONE; Protocol Stop: 07/16/25 17:24 Last Admin: 07/16/25 18:12 Dose: 4 mg Documented By: NEEMA see above Consultations Consultation(s) initiated? (list below): No Diagnosis Differential diagnosis abdominal pain: other (See MDM) Most likely diagnosis given after review of the tests above:: see clinical impression below Admission Indicated Admission indicated?: not indicated Admission Request Was there a request for admission?: No Disposition Plan Disposition Plan: Discharge Discharge Attestation Discharge Attestation: The patient and all family members were given an opportunity to ask questions and understood the discharge instructions. Discharge instructions specifically effects, indications for sooner follow up or return to the emergency department, and the expected course of current diagnosis. Patient condition: Stable Discharge Plan Plan Patient Disposition: HOME (Self Care) Prescriptions/Referrals Prescriptions/Med Rec: No Action ibuprofen 800 mg tablet 800 mg PO TID PRN (Reason: pain) Qty: 30 0RF ondansetron 4 mg tablet,disintegrating 4 mg PO Q8H PRN (Reason: nausea and vomiting) Qty: 14 0RF Referrals: No Primary/Family,Physician [Primary Care Provider] - In 1 week Problem List Clinical Impression: Abdominal pain Patient/Caregiver Discharge Instructions Education Materials: Abdominal Pain Additional Instructions: There is no evidence for intra-abdominal infection. You may take Tylenol as needed for pain. Follow-up with your doctor for further treatment and eval uation. Print Language: French Stand Alone Forms: Stacy Award Info., Patient Portal Info Letter
== END 2025-07-16 22:24 | disposition home or self-care (01) ==
PROVIDERS: Nurse Practitioner Family; Emergency Provider Emergency Medicine
DX: R10.11 Right upper quadrant pain (principal); K76.0 Fatty (change of) liver, not elsewhere classified; R11.2 Nausea with vomiting, unspecified
CPT/HCPCS: 36415; 76705; 80053; 81001; 83690; 85025; 87086; 99283; Q0162; A9270